=== PATIENT | female | born 1975 | race Caucasian/White ===

== ENCOUNTER → 2019-05-20 07:45 | Outpatient (CLI) | payer OTHER, SELFPAY ==
[2019-05-20 08:00] VITALS: BP 132/82; PULSE 82; RESP 16; TEMP 37; O2SAT 100; BMI 25.8
[2019-05-20] MEDS: 0.9% NaCl IVPB Med Flush (250 mL) 15 ML IV (08:16)
[2019-05-20] MEDS: 0.9% NaCl Peripheral Flush Adult/Peds IV (08:16)
[2019-05-20 09:03] VITALS: BP 127/87; PULSE 75
== END ==
DX: E61.1 Iron deficiency (principal)
CPT/HCPCS: 96365; J1756; J7050; A4216

== ENCOUNTER 2022-09-13 14:31 | Outpatient (CLI) | payer OTHER, SELFPAY ==
[2022-09-13] MEDS: 0.9% NaCl IVPB Med Flush (250 mL) 15 ML IV (14:47)
[2022-09-13] MEDS: 0.9% NaCl Peripheral Flush Adult/Peds IV (14:47)
[2022-09-13 14:51] VITALS: BP 171/93; PULSE 94; RESP 16; TEMP 36.4; O2SAT 100; BMI 27.1
[2022-09-13 15:59] VITALS: BP 165/95; PULSE 102
== END 2022-09-13 14:32 | disposition home or self-care (01) ==
DX: E61.1 Iron deficiency (principal)
CPT/HCPCS: 96365; J1756; J7050; A4216

== ENCOUNTER 2022-09-19 09:15 | Outpatient (CLI) | payer OTHER, SELFPAY ==
[2022-09-19 09:24] VITALS: BP 165/101; PULSE 85; RESP 16; TEMP 36.3; O2SAT 100; BMI 25.8
[2022-09-19] MEDS: 0.9% NaCl IVPB Med Flush (250 mL) 15 ML IV (09:33)
[2022-09-19] MEDS: 0.9% NaCl Peripheral Flush Adult/Peds IV (09:33)
[2022-09-19 10:08] VITALS: BP 149/100; PULSE 86; RESP 16; TEMP 36.6; O2SAT 100
== END 2022-09-19 09:16 | disposition home or self-care (01) ==
DX: E61.1 Iron deficiency (principal)
CPT/HCPCS: 96365; J1756; J7050; A4216

== ENCOUNTER → 2023-03-26 | Outpatient (CLI) | payer OTHER, SELFPAY ==
--- OUTSIDE RECORDS SUMMARY | 2023-03-26 10:48 | XMS RPT_ITS | CCD ---
Author Name Unknown Address [facility] [place] [address] Organization [facility] Care Team Providers Care Technical Inspector Name Role Phone HarmonJakub Attending Unavailable PROVIDER, UNKNOWN Referring Unavailable Omar Lea Primary Care Unavailable SUSSY BARBOUR Admitting Unavailable SUSSY BARBOUR Attending Unavailable AA NO PCP, NO PCP Primary Care Unavailable NICKY ARNOLD Primary Care Physic heather Quentin Poe Unavailable Unavailable Surinder Shoemaker Unavailable Surinder Shoemaker Attending Unavailable Quentin Poe CNP Primary Care Provi rolando QUENTIN POE Admitting QUENTIN Varner Primary Care QUENTIN Varner Referring MK Grider Attending DEDRICK Mayers Attending QUENTIN Herman Primary Care QUENTIN Varner Primary Care MK Grider Referring Lala salmon Allergies Allergy Classification Reported Allergen(s) Allergy Type Date of Onset Reaction(s) Facility (6 sources) Penicillins; Translations: [PENICILLINS] Propensity to adverse reactions to drug [address] [facility] (6 sources) zolpidem; Translations: [ZOLPIDEM] Drug Allergy 3 Other (See Comments) [facility] Medications Current Medications Medication Drug Class(es) Dates Sig (Normalized) Sig (Original) atenolol 25 mg oral tablet (2 sources) beta-Adrenergic Giovani Start: 09-21-2022 take 1 tablet by mouth once daily in the evening atenoloL (Tenormin) 25 MG tablet Take 1 (one) tablet (25 mg total) by mouth daily In the evening . 30 tablet 11 09/21/2022 Active dextromethorphan-b upropion (Auvelity) 45-105 mg TbIE (4 sources) dextromethorphan - bupropion (Auvelity) 45-105 mg TbIE Take by mouth daily . 0 Active Completed/Discontinued Medications Medication Drug Class(es) Dates Sig (Normalized) Sig (Original) famotidine 20 mg oral tablet (3 sources) Histamine-2 Receptor Antagonist Start: 07-17-2022 End: 09-21-2022 take 1 tablet by mouth every twelve hours famotidine (PEPCID) 20 MG tablet Take 1 (one) tablet (20 mg total) by mouth every 12 (twelve) hours . 60 tablet 0 07/17/2022 09/21/2022 Discontinued OLANZapine 5 mg disintegrating oral tablet (3 sources) Atypical Antipsychotic Start: 07-17-2022 End: 09-21-2022 apply 1 tablet topically once daily as needed for nausea OLANZapine zydis (ZYPREXA) 5 MG disintegrating tablet Dissolve 1 (one) tablet (5 mg total) on top of tongue nightly as needed (nausea) . 5 tablet 0 07/17/2022 09/21/2022 Discontinued Problems Problem Classification Problem Date Documented Date Episodic/Chronic Cardiac dysrhythmias (3 sources) Sinus tachycardia; Translations: [Tachycardia, unspecified] Onset: 09-21-2022 09-21-2022 Episodic Conditions associated with dizziness or vertigo (3 sources) Dizziness and giddiness; Translations: [Dizziness and giddiness] Onset: 07-17-2022 Episodic Deficiency and other anemia (2 sources) Iron deficiency anemia, unspecified; Translations: [Iron deficiency anemia, unspecified] Onset: 07-17-2022 Episodic E Codes: Adverse effects of medical drugs (1 source) Adverse effect of unspecified drugs, medicaments and biological substances, initial encounter; Translations: [Adverse effect of unsp drug/meds/biol subst, init] Onset: 07-17-2022 Episodic E Codes: Adverse effects of medical drugs (1 source) Adverse reaction to drug; Translations: [Unspecified drug or medicinal substance causing adverse effects in therapeutic use] 07-17-2022 Essential hypertension (9 sources) Hypertensive disorder; Translations: [Essential (primary) hypertension] Onset: 09-21-2022 09-04-2022 Chronic Fluid and electrolyte disorders (2 sources) Dehydration; Translations: [Dehydration] Onset: 07-17-2022 Episodic Headache; including migraine (1 source) Headache; including migraine; Translations: [Headache, unspecified] Onset: 07-17-2022 Nausea and vomiting (3 sources) Nausea with vomiting, unspecified; Translations: [Nausea] Onset: 07-17-2022 Episodic Other circulatory disease (2 sources) Elevated blood-pressure reading, without diagnosis of hypertension; Translations: [Elevated blood-pressure reading, without diagnosis of hypertension] Onset: 07-17-2022 Episodic Other nervous system disorders (2 sources) Fasciculation; Translations: [Fasciculation] Onset: 07-17-2022 Episodic Other screening for suspected conditions (not mental disorders or infectious disease) (2 sources) Abnormal electrocardiogram [ECG] [EKG]; Translations: [ABNORMAL ELECTROCARDIOGRAM] Onset: 06-26-2018 Episodic Residual codes; unclassified (2 sources) Other specified health status; Translations: [Other specified health status] Onset: 07-17-2022 Episodic Unclassified (2 sources) HIGH BLOOD PRESSURE, VOMITING 07-17-2022 Results Test Name Value Interpretation Reference Range Facil ity Vital Signs Date Time Vital Sign Value Performing Clinician Kristian bond 09-21-2022 08:41-0400 Body height 177.8 cm Mk Peters MD Work Phone: [facility] 09-21-2022 08:41-0400 Body mass index (BMI) [Ratio] 26.69 kg/m2 Mk Peters MD Work Phone: [facility] 09-21-2022 08:41-0400 Body weight 84.37 kg Mk Peters MD Work Phone: [facility] 09-21-2022 08:41-0400 Diastolic blood pressure 111 mm[Hg] Mk Peters MD Work Phone: [facility] 09-21-2022 08:41-0400 Heart rate 91 /min Mk Peters MD Work Phone: [facility] 09-21-2022 08:41-0400 SaO2% (BldA) [Mass fraction] 98 % Mk Peters MD Work Phone: [facility] 09-21-2022 08:41-0400 Systolic blood pressure 163 mm[Hg] Mk Peters MD Work Phone: [facility] Encounters Encounter Date Encounter Type Care Provider Facility Start: 10-27-2022 Refill Mk chris MD Work Phone: [facility] Procedures Date Procedure Procedure Detail Performing Clinician Start: 09-21-2022 Urnls dip stick/tabl et reagent auto microscopy Mk Peters MD Work Phone: Start: 09-21-2022 Ecg routine ecg w/le ast 12 lds w/i&r Mk Peters MD Work Phone: Plan of Treatment Date Care Activity Detail Author Start: 10-19-2022 Influenza vaccination Sequential Influenza Vaccine (#1) [facility] Start: 09-21-2022 End: 09-21-2022 Patient encounter procedure 09/21/2022 9:00 AM EDT Office Visit [facility] [address] [place] [address] [phone] Quentin Poe, [address] [address] Mk Peters MD [address] [address] [facility] Start: 10-10-2020 COVID-19 Vaccine (2 - Booster for Preet series) COVID-19 Vaccine (2 - Booster for Preet series) [facility] Start: 2013 Screening for malignant neoplasm of breast Mammogram [facility] Start: 1994 Screening for malignant neoplasm of cervix Pap Smear [facility] Start: 07-02-1991 Hepatitis C screening Hepatitis C Screening [facility] Start: 1988 HIV screening HIV Screening [facility] Start: 1985 Depression screening using PHQ-9 (Patient Health Questionnaire 9) score Depression Screening (PHQ-2/9) [facility] Start: 1976 History and physical examination, annual for health maintenance Wellness Visit [facility] Start: 01-01-1974 COVID-19 Vaccine (#1) COVID-19 Vaccine (#1) [facility] Start: 1973 Screening for malignant neoplasm of cervix Pap Smear [facility] Start: 1973 Screening for malignant neoplasm of colon [facility] Start: 1973 Tetanus vaccination Tetanus: Every 10yrs [facility] Payers Date Payer Category Payer Private Health Insurance 2021 Private Health Insurance [id number] 1973 Unknown [id number] 1973 Unknown [id number] 1973 Unknown [id number] 1973 Unknown [id number] 1973 Unknown [id number] 1973 Unknown [id number] 1959 Private Health Insurance [id number] Unknown [employer] Social History Date Type Detail Facility Tobacco smoking status [facility] Sex Assigned At Female [facility] Tobacco smoking consumption unknown [facility] Start: 07-17-2022 Tobacco smoking status NHIS Never smoked tobacco [facility] Start: 07-17-2022 Tobacco use and exposure Smokeless tobacco non-user [facility] Start: 07-17-2022 End: 09-21-2022 Alcohol intake Current drinker of alcohol (finding) [facility] Start: 07-17-2022 End: 09-21-2022 History of [address] function [facility] Start: 07-17-2022 End: 09-21-[address] [facility] Start: 07-17-2022 Alcohol Comment DAILY [facility] Start: 1973 Sex Assigned At Not on file [facility] Start: 09-21-2022 Alcohol Comment 5-6 drink on weekend s [facility] Clinical Notes 09-21-2022 to 10-27-2022 Telephone Encounter - Cheli Sanford RN - 10/27/2022 9:34 PM EDTTelephone Encounter - Cheli Sanford RN - 10/27/2022 9:34 PM Mk Prince MD - 09/21/2022 9:25 AM EDT Note Date & Type Note Facility 10-27-2022 Telephone encounter Note Refill already filled 09/21/22 [facility] 10-27-2022 Miscellaneous Notes Refill already filled 09/21/22 documented in this encounter [facility] 09-21-2022 Evaluation + Plan note Associated Problem(s): Hypertension Reviewed. [facility] 09-21-2022 Miscellaneous Notes Associated Problem(s): Hypertension Reviewed. documented in this encounter [facility] 09-21-2022 History of Presen t illness Narrative [facility] [address] [facility] [address] [facility] [id number] Subjective: Patricia Carmen is a 47 y.o. female seen in the office today for Chief Complaint Patient presents with [facility] HTN/ DR. Poe - palps -pt states pcp started her on lisinopril but bp bottomed out and she passed out, wasn't started on anything else Patient referred over because of hypertension. She has developed that only in the last year or so. Blood pressure always used to be good. patient was she was given lisinopril 10 mg and 2 days later she had a near syncopal episode where she had to be helped to the ground. Immediately came around. It was early in the morning after she had taken her medication. She stopped the lisinopril. Blood pressure is elevated noted today. She says that is how it runs at home. Patient has been treated for depression but apparently her hypertension and increased heart rate most likely inappropriate sinus tachycardia predates antidepression medication. Vitals: 09/21/22 0841 BP: (!) 163/111 BP Location: Left arm Patient Position: Sitting BP Cuff Size: X-large Adult Pulse: 91 SpO2: 98% Weight: 84.4 kg (186 lb) Height: 5' 10 EKG is unremarkable other recent blood work is unremarkable except iron deficiency anemia for which she is being treated with infusions. 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 No history of thyroid illness. Review of systems otherwise negative. Laboratory reviewed. Impression labile hypertension new onset probably essential. History of near syncope 2 days after starting lisinopril 10 mg daily. Discontinued. History of depression medications reviewed. Tells me feels like her heart rate runs fast at times. Today's heart rate is 91. Recent EKG does show sinus tachycardia Plan we will check TSH urinalysis and start atenolol 25 mg daily in the evening. Up titration as needed. I told her to let us know how her blood pressure is doing at home in the next 2 to 3 weeks. May need metoprolol in the future. See no need for any other extensive blood pressure or cardiac testing at this time. Consideration of antidepressant possibly exacerbating blood pressure and sinus tachycardia. Doubt any significant other arrhythmia. Overview of Problems Addressed: Problem Hypertension Sinus Tachycardia Assessment & Plan: As above. Hypertension Reviewed. Histories: Past Medical History: Diagnosis Date Celiac disease Past Surgical History: Procedure Laterality Date GASTRIC BYPASS Family History Problem Relation Age of Onset Heart attack Father Heart attack Maternal Grandmother Social History Tobacco Use Smoking status: Never Smokeless tobacco: Never Vaping Use Vaping Use: Never used Substance Use Topics Alcohol use: Yes Comment: 5-6 drink on weekends Drug use: Not Currently Patient's Medications New Prescriptions ATENOLOL (TENORMIN) 25 MG TABLET Take 1 (one) tablet (25 mg total) by mouth daily In the evening . Previous Medications DEXTROMETHORPHAN-BUPROPION (AUVELITY) 45-105 MG TBIE Take by mouth daily . OMEPRAZOLE (PRILOSEC) 20 MG CAPSULE Take 1 (one) capsule (20 mg total) by mouth daily . SUCRALFATE (CARAFATE) 1 GRAM TABLET Take 1 (one) tablet (1 g total) by mouth 4 (four) times a day before meals . Modified Medications No medications on file Discontinued Medications FAMOTIDINE (PEPCID) 20 MG TABLET Take 1 (one) tablet (20 mg total) by mouth every 12 (twelve) hours . OLANZAPINE ZYDIS (ZYPREXA) 5 MG DISINTEGRATING TABLET Dissolve 1 (one) tablet (5 mg total) on top of tongue nightly as needed (nausea) . Allergies Allergen Reactions Penicillins Anaphylaxis Ambien [Zolpidem] Other (See Comments) STATES CONFUSION Review of Systems Constitutional: Negative for malaise/fatigue. Cardiovascular: Positive for palpitations. Negative for chest pain, dyspnea on exertion and leg swelling. Neurological: Negative for dizziness. Objective: Physical Exam Vitals and nursing note reviewed. Constitutional: General: She is not in acute distress. Appearance: She is well-developed. She is not diaphoretic. Comments: No acute distress HENT: Head: Normocephalic. Eyes: General: No scleral icterus. Comments: Pupils equal. Neck: Vascular: No JVD. Cardiovascular: Rate and Rhythm: Regular rhythm. Pulses: Radial pulses are 2+ on the right side and 2+ on the left side. Heart sounds: S1 normal and S2 normal. No murmur heard. No gallop. No S3 or S4 sounds. Comments: Feet warm bilateral. Pulmonary: Effort: No respiratory distress. Breath sounds: Normal breath sounds. No stridor. No wheezing or rales. Abdominal: General: There is no distension. Palpations: Abdomen is soft. Tenderness: There is no abdominal tenderness. There is no guarding. Musculoskeletal: General: No tenderness. Skin: General: Skin is warm and dry. Neurological: Mental Status: She is alert and oriented to person, place, and time. Psychiatric: Behavior: Behavior normal. Vitals: Vitals: 09/21/22 0841 BP: (!) 163/111 BP Location: Left arm Patient Position: Sitting BP Cuff Size: X-large Adult Pulse: 91 SpO2: 98% Weight: 84.4 kg (186 lb) Height: 5' 10 Body mass index is 26.69 kg/m . Orders Placed This Encounter Procedures TSH with Reflex Free T4 Standing Status: Future Number of Occurrences: 1 Standing Expiration Date: 09/22/2023 Order Specific Question: Release to patient Answer: Immediate Urinalysis Order Specific Question: Release to patient Answer: Immediate Follow Up Ordered: Return if symptoms worsen or fail to improve. Mk Peters MD Review of Systems Constitutional: Negative for malaise/fatigue. Cardiovascular: Positive for palpitations. Negative for chest pain, dyspnea on exertion and leg swelling. Neurological: Negative for dizziness. documented in this encounter [facility] Evaluation + Plan note No data available for this section [facility] Hypertension, unspecified type- Primary [facility] Diagnosis Hypertension, unspecified type Sinus tachycardia Other specified cardiac dysrhythmias [facility] No data available for this section [facility] Progress note No data available for this section [facility] Summary Purpose Family History No Family History Records FoundNo Family History Records FoundNo Family History Records FoundNo Family History Records FoundNo Family History Records FoundNo Family History Records FoundNo Family History Records FoundNo Family History Records Found Advance Directives No Advanced Directives Records FoundNo Advanced Directives Records FoundNo Advanced Directives Records FoundNo Advanced Directives Records FoundNo Advanced Directives Records FoundNo Advanced Directives Records FoundNo Advanced Directives Records FoundNo Advanced Directives Records Found Reason for Referral Specialty Diagnoses / Procedures Referred By Lisa t Referred To Contact Cardiology Diagnoses Hypertension, unspecified [place] [address] [facility] [address] [place] [address] Referral ID Status Reason Start Date Expiration Date V isits Requested Visits Authorized [id number] Authorized 09/04/2022 09/04/2023 1 1 Additional Source Comments INFORMATION SOURCE (unrecogn ized section and content) DATE CREATED AUTHOR AUTHOR'S ORGANIZ ATION 07/10/2018 [facility] DATE CREATED AUTHOR AUTHOR'S ORGANIZ ATION 07/18/2018 [facility] DATE CREATED AUTHOR AUTHOR'S ORGANIZ ATION 10/01/[address] [facility] DATE CREATED AUTHOR AUTHOR'S ORGANIZ ATION 07/07/2021 [facility] ([place]) DATE CREATED AUTHOR AUTHOR'S ORGANIZ ATION 07/28/2022 [facility] DATE CREATED AUTHOR [facility]S [facility]IZ ATION [facility] DATE CREATED AUTHOR AUTHOR'S ORGANIZ ATION 09/25/2022 [facility] Care Team (unrecognized sect ion and content) Technical Inspector Relationship Specialty Start Date [place] [address] PCP - General Family Medicine 07/17/22 Technical Inspector Relationship Specialty Start Date [place] [address] PCP - General Family Medicine 07/17/22 Technical Inspector Relationship Specialty Start Date [place] [address] PCP - General Family Medicine 07/17/22 <item> Privacy Markings (unrecogniz ed section and content) Section Author: Eloisa Peña PROHIBITION ON REDISCLOSURE OF CONFIDENTIAL INFORMATION This notice accompanies a disclosure of information concerning a client made to you with the consent of such client. Reason for Visit (unrecogniz ed section and content) Specialty Diagnoses / Procedures Referred By Contnicolás t Referred To Contact Cardiology Diagnoses Hypertension, unspecified type Quentin Poe, [facility] [address] [place] [address] [facility] [address] [place] [address] Referral ID Status Reason Start Date Expiration Date Visits Re quested Visits Authorized [id number] Closed 09/04/2022 09/04/2023 1 1 Reason Comments Medication Refill FOR RECORDS PERTAINING TO PATIENTS WHO ARE OR HAVE BEEN ENROLLED IN A CHEMICAL DEPENDENCY/SUBSTANCEABUSE PROGRAM, SOME INFORMATION MAY BE OMITTED. This clinical summary was aggregated from multiple sources. Caution should be exercised in using it in the provision of clinical care. This summary normalizes information from multiple sources, and as a consequence, information in this document may materially change the coding, format and clinical context of patient data. In addition, data may be omitted in some cases. CLINICAL DECISIONS SHOULD BE BASED ON THE PRIMARY CLINICAL RECORDS. [employer] provides no warranty or guarantee of the accuracy or completeness of information in this document.
== END | disposition home or self-care (01) ==
PROVIDERS: Referring Provider Ophthalmology; Visit Provider Ophthalmology
DX: H16.143 Punctate keratitis, bilateral (principal)
CPT/HCPCS: 36415